=== PATIENT | male | born 1940 | race Caucasian/White ===

== ENCOUNTER 2020-08-16 22:08 | Emergency (ER) | payer MEDICARE, SELFPAY ==
[2020-08-16 22:09] VITALS: BP 142/90; PULSE 69; RESP 18; TEMP 36.2; O2SAT 98; BMI 27.2
--- NOTE | 2020-08-16 22:44 | EX.ED.DYSGE1 ---
HPI History of Present Illness Chief Complaint: Lower Extremity Injury Detail of Chief Complaint: Right hip pain Informant: patient and spouse/S.O. Onset/Context/Timing Onset: Weeks Location: Right lateral hip Worsened by: Use and certain seated positions Relieved by: Laying down Associated Symptoms Associated Symptoms: None Narrative Narrative: Patient had a left toe amputated months ago. He was wearing a boot up until about a month ago. At that time he started to have right hip pain. He did not have any initial injury or inciting event. He thought it might be from wearing the boot, and that possibly he had sciatica. He reports falling between 2 to 3 weeks ago. He slipped on water and landed on his backside. He got up immediately and did not think much of it but his pain in the right hip continues to persist. No back pain. No history of back surgery. No history of hip surgery. No associated symptoms, neurologic symptoms, weakness, etc. he has been taking ibuprofen with no improvement. PFSH PFSH Allergy/AdvReac Type Severity Reaction Status Date / Time Sulfa (Sulfonamide Allergy Other Verified 08/16/20 22:11 Antibiotics) sulfamethoxazole Allergy Other Verified 08/16/20 22:11 [From Bactrim] trimethoprim [From Bactrim] Allergy Other Verified 08/16/20 22:11 Social History Smoking Status: Never smoker ROS ROS ED Constitutional Constitutional ED: Denies chills or fever(s) Eyes Eyes: Denies change in vision ENT ENT ED: Denies ear pain Cardiovascular Cardiovascular: Denies chest pain Respiratory/Chest Respiratory/Chest: Denies dyspnea Gastrointestinal Gastrointestinal: Denies abdominal pain Genitourinary Genitourinary ED: Denies dysuria Musculoskeletal Musculoskeletal: Reports arthralgias; Denies back pain, myalgias or neck pain Integumentary Denies rash Neurologic Neurologic: Denies headache(s), paresthesias or weakness Psychiatric Psychiatric: Denies depression Endocrine Endocrinology: Denies polyuria Allergic/Immunologic Allergic/Immunologic ED: Denies urticaria EXAM Physical Exam Const Vital Signs: 08/16/20 22:09 Temperature 97.1 F L Temperature Source Temporal Pulse Rate 69 Respiratory Rate 18 Blood Pressure 142/90 H Blood Pressure Mean 107 Pulse Ox 98 Oxygen Delivery Method Room Air Positive well nourished and well developed General Appearance ED: well developed HEENT Negative for trauma or tenderness Eyes EOMs intact bilaterally Neck supple Resp normal respiratory effort Cardio regular rate GI normal to inspection, nondistended, normoactive bowel sounds and non-tender Palpation: soft Back/Spine Lumbar Spine / Lower Back: Negative for lumbar spinal tenderness Extremity normal to inspection Extremity Narrative: No shortening, negative logroll General Extremety ED: Negative for tenderness Neuro oriented x3 and no sensory deficits noted Sensorium / Orientation: alert Motor Exam: strength 5/5 throughout Psych mental status grossly normal Skin no rashes or lesions noted and no wounds MDM MDM MDM Narrative Medical decision making narrative: Patient has right-sided hip pain. The pain started before his fall. I am not sure what brought this on. This seems to be myofascial. Because of his age and his injury, I did obtain x-rays. Nothing to suggest vascular, neurologic, urologic, or GI pathology. Patient declined anything for pain. I did check x-rays, reviewed by the radiologist and myself. These were unremarkable for anything acute to explain his pain. Again, I suspect this is soft tissue/myofascial pain. Continue ibuprofen. He is taking 400 mg 3 times a day. I suggested a walker. He has a cane and declined a walker. I advised him to follow-up with his doctor for outpatient management, pain management, physical therapy as needed on a nonemergent basis. Radiography Diagnostic Testing: Radiology Impression Hip/Pelvis X-Ray 08/16/20 22:54 IMPRESSION: No evidence of displaced pelvic or hip fracture. at 0317 Reported and signed by: Reggie Laura MD Electronically Signed: Reggie Laura MD at 23:27 EDT Tel , Service support , Lumbar Spine X-Ray 08/16/20 22:55 IMPRESSION: Degenerative changes. No acute fracture or spondylolisthesis. at 3108 Reported and signed by: Reggie Laura MD Electronically Signed: Reggie Laura MD at 23:17 EDT Tel , Service support , X-rays reviewed by the radiologist and myself were unremarkable for any fractures or acute changes. He does have some degenerative findings. Discharge Plan Triage Chief Complaint: Lower Extremity Injury ED Provider: Lei Castillo Dx/Rx/DC Orders Clinical Impression: Acute pain of right hip Instructions: ED Hip Strain Primary Care Provider: NOT,DEFINED Referrals: NOT,DEFINED [Primary Care Provider] - Activity Restrictions/Additional Instructions: Follow-up with your primary care doctor Disposition Disposition: Home, Self Care
--- NOTE | 2020-08-16 22:54 | RAD_ITS ---
EXAM: XR RIGHT HIP WITH PELVIS WHEN PERFORMED, 2 OR 3 VIEWS : 1940 CLINICAL INDICATION: fall, trauma TECHNIQUE: Two or three views of the right hip with pelvis when performed. This report was created using [employer] report generation technology. COMPARISON: None. FINDINGS: BONES/JOINTS: Unremarkable. No displaced fracture. No destructive or sclerotic lesions. Note that overlapping bowel shadows may however obscure fine detail. Sacroiliac joint is unremarkable. No widening of the pubic symphisis. The articular structures are unremarkable. SOFT TISSUES: Unremarkable. No soft tissue swelling or gas. RAD/HIP, UNI W/ Pelvis 2-3 Views IMPRESSION: No evidence of displaced pelvic or hip fracture. at 2327 Reported and signed by: Reggie Laura MD Electronically Signed: Reggie Laura MD at 23:27 EDT Tel , Service support ,
--- NOTE | 2020-08-16 22:55 | RAD_ITS ---
History: fall, pain EXAMINATION/TECHNIQUE: XR Spine Lumbar 2 or 3 Views: COMPARISON: None FINDINGS: VERTEBRAE: Preserved vertebral body height. No fracture. No spondylolisthesis. Degenerative changes of the posterior elements. Preservation of the normal lumbar lordosis. DISCS: Degenerative changes are noted. INCLUDED ABDOMEN: Included bowel gas pattern is non-obstructive. Atherosclerotic calcifications of the abdominal aorta. RAD/Lumbar Spine 2 or 3 Views IMPRESSION: Degenerative changes. No acute fracture or spondylolisthesis. at 2318 Reported and signed by: Reggie Laura MD Electronically Signed: Reggie Laura MD at 23:17 EDT Tel , Service support ,
== END 2020-08-17 | disposition home or self-care (01) ==
LOC: ED 23:52
PROVIDERS: Emergency Provider Emergency Medicine
DX: M25.551 Pain in right hip (principal); W01.0XXA Fall on same level from slipping, tripping and stumbling without subsequent striking against object, initial encounter; Y93.9 Activity, unspecified; Y92.9 Unspecified place or not applicable; Z89.422 Acquired absence of other left toe(s)
CPT/HCPCS: 72100; 73502; 99282